=== PATIENT | male | born 1955 ===

== ENCOUNTER 2017-01-01 13:19 | Emergency (ER) | payer OTHER ==
[2017-01-01 13:47] VITALS: RESP 18; TEMP 98.3; O2SAT 99
[2017-01-01] MEDS ORDERED: Lidocaine 1% w Epi 1:100,000 Inj INJ ONE (14:37)
[2017-01-01] MEDS ORDERED: Lidocaine 2% w Epi 1:100,000 Inj IJ ONE (15:03)
--- NOTE | 2017-01-01 15:30 | C.PDOC ---
History Of Present Illness 61 y/o male presents to ED for evaluation on an abscess on lower back. Patient states he has had bump to the area for 20+ years but notes for the last two week it became more painful and red. Patient denies numbness, n/v/d, fever, chills or any other complaints at this time. Time Seen by Provider: 01/01/17 13:57 Chief Complaint (Nursing): Abnormal Skin Integrity History Per: Patient History/Exam Limitations: no limitations Onset/Duration Of Symptoms: Days Current Symptoms Are (Timing): Still Present Past Medical History Reviewed: Historical Data, Nursing Documentation, Vital Signs Vital Signs: Last Vital Signs Temp 98.3 F 01/01/17 13:43 Pulse 72 01/01/17 15:42 Resp 18 01/01/17 15:42 BP 138/78 01/01/17 15:42 Pulse Ox 99 01/01/17 15:44 Family History: States: No Known Family Hx - Social History Hx Alcohol Use: No Hx Substance Use: No - Immunization History Hx Tetanus Toxoid Vaccination: No Hx Influenza Vaccination: No Hx Pneumococcal Vaccination: No Review Of Systems Except As Marked, All Systems Reviewed And Found Negative. Constitutional: Negative for: Fever, Chills Gastrointestinal: Negative for: Nausea, Vomiting, Diarrhea Neurological: Negative for: Numbness Physical Exam - Physical Exam Appears: Non-toxic, No Acute Distress Skin: Warm, Dry Head: Atraumatic, Normacephalic Eye(s): bilateral: Normal Inspection, EOMI Nose: Normal Oral Mucosa: Moist Chest: Symmetrical Respiratory: No Accessory Muscle Use Gastrointestinal/Abdominal: Soft, No Tenderness, No Guarding, No Rebound Back: No CVA Tenderness, No Vertebral Tenderness, Other (4cm area of erythema on lower back with central flunctuance) Extremity: Normal ROM, Capillary Refill (<2 seconds) Neurological/Psych: Oriented x3, Normal Speech, Normal Cognition, Other (No focal deficits) ED Course And Treatment O2 Sat by Pulse Oximetry: 99 (RA) Pulse Ox Interpretation: Normal Progress Note: Pt tolerated I&D well. Purlent and fat material trained. Discussed with pt possible lipoma , may need surgical excision. Discussed strict follow up in ER in 2 days for wound check and wound care. Reevaluation Time: 15:35 Reassessment Condition: Improved - Incision & Drainage Of Abscess Anesthesia: Lidocaine 2%, With Epi Prep Used: Sterile Water, Betadine Procedure: Incised W/Scalpel Blade#: (11), Drained Pus, Irrigated Cavity W/ Saline, Probed To Break Up Loculations, Packed W/Gauze, Cultures Obtained And Sent To Lab Disposition - Disposition Referrals: Michelle Mehta MD [Medical Doctor] - Disposition: HOME/ ROUTINE Disposition Time: 15:27 Condition: STABLE Additional Instructions: Wound check in 2 days or sooner if symptoms persist or worsen. Keep area clean and dry. Comprobacin de la herida en 2 moreno o antes si los sntomas persisten o empeoran. Mantenga el trisha limpia y seca. Prescriptions: Clindamycin [Cleocin] 300 mg PO QID #28 cap Instructions: Abscess Incision and Drainage (ED) Forms: Work Excuse Print Language: FRISIAN - Clinical Impression Clinical Impression: Incisional abscess - PA / SAFETY SPECIALIST / Resident Statement MD/DO has reviewed & agrees with the documentation as recorded. - Scribe Statement The provider has reviewed the documentation as recorded by the Scribpam Cao All medical record entries made by the Scribpam were at my direction and personally dictated by me. I have reviewed the chart and agree that the record accurately reflects my personal performance of the history, physical exam, medical decision making, and the department course for this patient. I have also personally directed, reviewed, and agree with the discharge instructions and disposition.
[2017-01-01 15:42] VITALS: BP 138/78; PULSE 72
[2017-01-01] MEDS ORDERED: Bacitracin 500 Units/gm Oint Foilpak UD ONE (16:02)
== END 2017-01-01 15:52 | disposition home or self-care (01) ==
LOC: C.ER 13:19
DX: L02.212 Cutaneous abscess of back [any part, except buttock and flank] (principal)

== ENCOUNTER 2017-01-03 11:56 | Emergency (ER) | payer OTHER ==
[2017-01-03 12:10] VITALS: BP 155/76; PULSE 86; RESP 20; TEMP 98.1; O2SAT 98
--- NOTE | 2017-01-03 12:47 | C.PDOC ---
History Of Present Illness A 61 y/o male comes in for a wound check after an I&D 3 days prior in the ER. Pt was placed on antibiotics and is currently taking it. Denies fever, chill, or any other complaints. Time Seen by Provider: 01/03/17 12:20 Chief Complaint (Nursing): Abnormal Skin Integrity History Per: Patient History/Exam Limitations: no limitations Onset/Duration Of Symptoms: Days Current Symptoms Are (Timing): Still Present Severity: None Recent travel outside of the [place]: No Additional History Per: Patient Past Medical History Reviewed: Historical Data, Nursing Documentation, Vital Signs Vital Signs: Last Vital Signs Temp 98.1 F 01/03/17 12:09 Pulse 86 01/03/17 12:09 Resp 20 01/03/17 12:09 BP 155/76 H 01/03/17 12:09 Pulse Ox 98 01/03/17 14:12 Family History: States: Unknown Family Hx - Social History Hx Alcohol Use: No Hx Substance Use: No - Immunization History Hx Tetanus Toxoid Vaccination: No Hx Influenza Vaccination: No Hx Pneumococcal Vaccination: No Review Of Systems Except As Marked, All Systems Reviewed And Found Negative. Constitutional: Negative for: Fever, Chills Gastrointestinal: Negative for: Nausea, Vomiting, Diarrhea Skin: Negative for: Rash Physical Exam - Physical Exam Appears: Non-toxic, No Acute Distress Skin: Normal Color, Warm, Dry, No Pale, No Rash, Ecchymosis, Other (+Healing packed wound to the left mid back. +3cm erythematous, tender, and indurated abscess with no fluctuance, proximal to the packed wound.) Head: Atraumatic, Normacephalic Neurological/Psych: Oriented x3, Normal Speech, Normal Cognition ED Course And Treatment O2 Sat by Pulse Oximetry: 98 (RA) Pulse Ox Interpretation: Normal Medical Decision Making Medical Decision Makin yo M here for wound check s/p I&D 3 days ago. Packing removed easily by PA. Wound cleaned and dressing applied. Pt was advised to apply warm compresses to new abscess and keep old abscess cleaned. Pt was instructed to continue with antibiotics and instructed to follow up with PMD within 1-2 days for re-evaluation. Disposition - Disposition Referrals: Abby Edge MD [Staff Provider] - Brayan Bates MD [Staff Provider] - Disposition: HOME/ ROUTINE Disposition Time: 12:45 Condition: GOOD Instructions: Acute Wound Care (ED), Abscess (ED) Forms: Work Excuse Print Language: [place] - Clinical Impression Clinical Impression: Abscess, Wound check, abscess - PA / MEDICAL REPRESENTATIVE / Resident Statement MD/DO has reviewed & agrees with the documentation as recorded. - Scribe Statement The provider has reviewed the documentation as recorded by the Scribe Hitesh schaffer All medical record entries made by the Aprilibpam were at my direction and personally dictated by me. I have reviewed the chart and agree that the record accurately reflects my personal performance of the history, physical exam, medical decision making, and the department course for this patient. I have also personally directed, reviewed, and agree with the discharge instructions and disposition.
== END 2017-01-03 13:44 | disposition home or self-care (01) ==
LOC: C.ER 11:56
DX: Z48.00 Encounter for change or removal of nonsurgical wound dressing (principal)